=== PATIENT | male | born 1975 | race African-American/Black ===

== ENCOUNTER 2021-10-03 04:25 | Emergency (ER) | payer SELFPAY ==
[2021-10-03] MEDS ORDERED: Bupivacaine PF 0.5% 30 ML VIAL ONE (04:50)
[2021-10-03] MEDS ORDERED: PHENYLEPHRINE-NS 100 MCG/ML 10 ML SYRINGE IVP SCH (05:00)
== END 2021-10-03 06:37 | disposition home or self-care (01) ==
LOC: CSHERS 04:25
DX: N48.30 Priapism, unspecified (principal)
CPT/HCPCS: 96374; S0020